=== PATIENT | female | born 1940 | race Caucasian/White ===

== ENCOUNTER 2016-08-17 18:10 | Emergency (ER) | END 2016-08-17 22:30 | disposition left against medical advice (07) | DX: Z53.21 Procedure and treatment not carried out due to patient leaving prior to being seen by health care provider (principal) ==

== ENCOUNTER 2016-08-19 11:25 | Emergency (ER) | payer SELFPAY ==
[~2016-08-19] VITALS: Wt 61.3 kg
[~2016-08-19 11:25] MED LIST: LEVO50TA64; LOSA25TA2; SERTRALINE PO; VERA40TA
== END 2016-08-19 14:15 | disposition left against medical advice (07) ==
LOC: E/R 11:25
DX: Z53.21 Procedure and treatment not carried out due to patient leaving prior to being seen by health care provider (principal)